=== PATIENT | male | born 1995 | race Caucasian/White ===

== ENCOUNTER 2025-06-28 02:37 | Emergency (ER) | payer OTHER ==
[~2025-06-28] VITALS: Ht 180.3 cm; Wt 109.1 kg
[2025-06-28 02:49] VITALS: TEMP 98.1
[2025-06-28 03:17] LABS: PLATELET COUNT (AUTO) 298 K/uL (150-450); RED BLOOD CELL COUNT(AUTO) 4.78 MIL/uL (4.50-5.90); RED CELL DISTRIBUTION WIDTH 13.5 % (11.5-14.5); WHITE BLOOD COUNT (AUTO) 7.7 K/uL (4.5-11.0)
[2025-06-28 03:27] LABS: CALCIUM, TOTAL 9.0 mg/dL (8.8-10.5); CREATININE 0.88 mg/dL (0.60-1.30); GLOMERULAR FILTR. RATE CALC > 60 mL/min (>60); GLUCOSE,RANDOM 104 mg/dL (70-110); SODIUM SERUM 142 mmol/L (136-145); UREA NITROGEN, BLOOD 12 mg/dL (7-18)
[2025-06-28 03:32] LABS: ASPARTATE AMINOTRANSFERASE 27.0 U/L (15-37); TOTAL PROTEIN, SERUM 7.6 g/dL (6.4-8.2)
[2025-06-28] MEDS: PB/HYOSCY/ATR/SCOP/LIDO/MAALOX 55 ML BOTTLE PO ONE (03:47)
[2025-06-28 04:12] LABS: TROPONIN I-HIGH SENSITIVITY 6 ng/L (<76)
[2025-06-28] MEDS: ONDANSETRON HCL 4 MG/2 ML VIAL IVP ONE (05:00)
[2025-06-28] MEDS: PIPERACILLIN/TAZO 3.375 GM/D5W 50 ML IV ONE (05:03)
[2025-06-28 06:39] LABS: APPEARANCE,URINE CLEAR (CLEAR); GLUCOSE, URINE (UA) NEGATIVE (NEGATIVE); LEUKOCYTE ESTERASE ,URINE NEGATIVE (NEGATIVE); NITRATE,URINE NEGATIVE (NEGATIVE); OCCULT BLOOD,URINE NEGATIVE (NEGATIVE); SPECIFIC GRAVITIY, URINE 1.023 (1.003-1.030)
[2025-06-28 07:10] VITALS: BP 149/84; PULSE 65; RESP 18; O2SAT 98
[2025-06-28] MEDS ORDERED: MAG30ORA11 PO (07:10)
[2025-06-28] MEDS ORDERED: OMEP-148 PO (07:10)
== END 2025-06-28 07:20 | disposition home or self-care (01) ==
LOC: EMS 02:39
DX: K29.70 Gastritis, unspecified, without bleeding (principal); K21.9 Gastro-esophageal reflux disease without esophagitis; R10.13 Epigastric pain; Z87.19 Personal history of other diseases of the digestive system; Z90.89 Acquired absence of other organs; Z91.018 Allergy to other foods
CPT/HCPCS: 99285; 74176; 96365; 76700; 96375; 80048; 80076; 81003; 83690; 83735; 84484; 85025; 36415; 93005; J1171; J2405; J2543